=== PATIENT | male | born 1980 | race Caucasian/White ===

== ENCOUNTER 2017-09-01 21:44 | Emergency (ER) | payer OTHER, BC ==
[~2017-09-01] VITALS: Ht 182.8 cm; Wt 72.6 kg
[~2017-09-01 21:44] MED LIST: AUGMENTIN 875875 MG PO; CLEOCIN HCL150 MG PO; CLINDAMYCIN HC300 MG PO; HYDROCODONE BIT1 T11 PO; KEFLEX500 MG PO; MOTRIN800 MG PO; PENICILLIN250 MG PO; TOBREX OPHTH S2.5 ML OPH; ULTRAM50 MG PO; VICODIN 5/500 505 MG PO
[2017-09-01] MEDS ORDERED: ROBAXIN500 M1 PO (23:23)
== END 2017-09-01 23:43 | disposition home or self-care (01) ==
LOC: ED 21:44
DX: R51 Headache (principal); M54.2 Cervicalgia; M25.511 Pain in right shoulder; M25.512 Pain in left shoulder; F17.200 Nicotine dependence, unspecified, uncomplicated; Z79.899 Other long term (current) drug therapy; V49.88XA Car occupant (driver) (passenger) injured in other specified transport accidents, initial encounter; Y93.89 Activity, other specified; Y92.413 State road as the place of occurrence of the external cause; Y99.9 Unspecified external cause status

== ENCOUNTER 2019-04-06 17:41 | Emergency (ER) | payer BC ==
[~2019-04-06] VITALS: Ht 182.8 cm; Wt 74.8 kg
[~2019-04-06 17:41] MED LIST changes: +ROBAXIN500 M1 PO
== END 2019-04-06 19:16 | disposition home or self-care (01) ==
LOC: ED 17:41
DX: G43.909 Migraine, unspecified, not intractable, without status migrainosus (principal); F17.200 Nicotine dependence, unspecified, uncomplicated; Z79.2 Long term (current) use of antibiotics; Z79.899 Other long term (current) drug therapy

== ENCOUNTER 2020-07-26 15:52 | Emergency (ER) | payer OTHER | END 2020-07-26 17:00 | disposition home or self-care (01) | LOC: ED 15:52 | DX: R22.0 Localized swelling, mass and lump, head (principal); Z53.21 Procedure and treatment not carried out due to patient leaving prior to being seen by health care provider ==

== ENCOUNTER 2020-10-28 20:54 | Emergency (ER) | payer OTHER ==
[~2020-10-28] VITALS: Ht 182.8 cm; Wt 72.6 kg
[2020-10-28 21:47] LABS: BASO % 0.5 % (0.0-1.0); EOS # 0.1 10*3/uL (0.0-0.4); EOS % 1.5 % (1.0-4.0); HEMATOCRIT 44.4 % (42.0-52.0); LYMPH # 1.4 10*3/uL (1.3-4.4); LYMPH % 16.7 % (27.0-41.0); MEAN CELL VOLUME 98.4 fl (80.0-94.0); MEAN CORPUSCULAR HGB 31.5 pg (27.0-31.0); MEAN PLATELET VOLUME 9.2 fl (9.6-12.3); MONO # 0.9 10*3/uL (0.1-1.0); MONO % 10.5 % (3.0-9.0); NEUT % 70.4 % (47.0-73.0); PLATELET COUNT AUTOMATED 394 10*3/uL (130-400); RED BLOOD COUNT 4.51 10*6/uL (4.50-5.90); RED CELL DISTRI WIDTH 15.5 % (0-14.5); WHITE BLOOD COUNT 8.6 10*3/uL (4.8-10.8)
[2020-10-28 22:03] LABS: ALBUMIN 3.9 gm/dl (3.1-4.5); ALKALINE PHOSPHATASE 84 U/L (45-117); BUN 14 mg/dl (7-24); CHLORIDE 106 mmol/L (98-107); CREATININE 1.15 mg/dL (0.70-1.30); POTASSIUM 3.5 mmol/L (3.5-5.1); SGOT/AST 9 IU/L (3-35); SGPT/ALT 8 U/L (12-78); SODIUM 140 mmol/L (136-145); TOTAL PROTEIN 8.2 gm/dL (6.4-8.2)
[2020-10-28 22:04] LABS: TROPONIN I < 0.015 ng/ml (<0.045)
== END 2020-10-29 05:51 | disposition home or self-care (01) ==
LOC: ED 20:54
PROVIDERS: Emergency Medicine
DX: R42 Dizziness and giddiness (principal); T38.0X5A Adverse effect of glucocorticoids and synthetic analogues, initial encounter; Z88.8 Allergy status to other drugs, medicaments and biological substances; Y92.89 Other specified places as the place of occurrence of the external cause

== ENCOUNTER 2020-11-01 20:52 | Emergency (ER) | payer OTHER ==
[~2020-11-01] VITALS: Ht 182.8 cm; Wt 72.6 kg
[2020-11-01] MEDS ORDERED: ZOFRAN4 MG PO (21:40)
== END 2020-11-01 22:10 | disposition home or self-care (01) ==
LOC: ED 20:52
DX: R11.0 Nausea (principal); F17.200 Nicotine dependence, unspecified, uncomplicated; Z88.8 Allergy status to other drugs, medicaments and biological substances; Z79.899 Other long term (current) drug therapy

== ENCOUNTER 2021-03-30 01:47 | Emergency (ER) | payer OTHER ==
[~2021-03-30] VITALS: Ht 182.8 cm; Wt 72.6 kg
[~2021-03-30 01:47] MED LIST changes: +ZOFRAN4 MG PO
== END 2021-03-30 03:32 | disposition home or self-care (01) ==
LOC: ED 01:47
DX: R05 Cough (principal); Z20.822 Contact with and (suspected) exposure to COVID-19; Z88.8 Allergy status to other drugs, medicaments and biological substances

== ENCOUNTER 2021-05-19 23:22 | Emergency (ER) | payer OTHER ==
[~2021-05-19] VITALS: Ht 182.8 cm; Wt 72.6 kg
== END 2021-05-20 01:40 | disposition home or self-care (01) ==
LOC: ED 23:22
DX: S09.90XA Unspecified injury of head, initial encounter (principal); Z88.8 Allergy status to other drugs, medicaments and biological substances; V49.50XA Passenger injured in collision with unspecified motor vehicles in traffic accident, initial encounter; Y93.89 Activity, other specified; Y92.89 Other specified places as the place of occurrence of the external cause; Y99.8 Other external cause status

== ENCOUNTER 2021-07-06 19:58 | Emergency (ER) | payer OTHER ==
[~2021-07-06] VITALS: Ht 182.8 cm; Wt 72.6 kg
== END 2021-07-06 23:37 | disposition left against medical advice (07) ==
LOC: ED 19:58
DX: R05.9 Cough, unspecified (principal); Z20.822 Contact with and (suspected) exposure to COVID-19

== ENCOUNTER 2021-11-07 | Emergency (ER) | payer OTHER ==
[~2021-11-07] VITALS: Ht 180.3 cm; Wt 81.6 kg
[2021-11-07] MEDS ORDERED: CEPHALEXIN500 M1 PO (02:40)
== END 2021-11-07 03:20 | disposition left against medical advice (07) ==
LOC: ED
DX: S01.01XA Laceration without foreign body of scalp, initial encounter (principal); Z88.8 Allergy status to other drugs, medicaments and biological substances; W22.8XXA Striking against or struck by other objects, initial encounter; Y93.89 Activity, other specified; Y92.89 Other specified places as the place of occurrence of the external cause; Y99.8 Other external cause status

== ENCOUNTER 2021-12-01 16:07 | Emergency (ER) | payer OTHER ==
[~2021-12-01] VITALS: Ht 180.3 cm; Wt 72.6 kg
[~2021-12-01 16:07] MED LIST changes: +CEPHALEXIN500 M1 PO
[2021-12-01 16:45] LABS: BASO % 0.5 % (0.0-1.0); EOS # 0.4 10*3/uL (0.0-0.4); EOS % 4.3 % (1.0-4.0); HEMATOCRIT 41.7 % (42.0-52.0); LYMPH # 1.5 10*3/uL (1.3-4.4); MEAN CELL VOLUME 97.2 fl (80.0-94.0); MEAN CORPUSCULAR HGB 30.8 pg (27.0-31.0); MEAN CORPUSCULAR HGB CONC 31.7 g/dl (33.0-37.0); MEAN PLATELET VOLUME 8.7 fl (9.6-12.3); MONO # 0.6 10*3/uL (0.1-1.0); MONO % 7.3 % (3.0-9.0); NEUT % 70.7 % (47.0-73.0); PLATELET COUNT AUTOMATED 393 10*3/uL (130-400); RED BLOOD COUNT 4.29 10*6/uL (4.50-5.90); RED CELL DISTRI WIDTH 15.1 % (0-14.5); WHITE BLOOD COUNT 8.5 10*3/uL (4.8-10.8)
[2021-12-01 17:04] LABS: ALKALINE PHOSPHATASE 97 U/L (45-117); BUN 16 mg/dl (7-24); CHLORIDE 106 mmol/L (98-107); POTASSIUM 3.9 mmol/L (3.5-5.1); SGOT/AST 11 IU/L (3-35); SGPT/ALT 7 U/L (12-78); SODIUM 139 mmol/L (136-145); TOTAL PROTEIN 7.3 gm/dL (6.4-8.2)
== END 2021-12-01 18:59 | disposition left against medical advice (07) ==
LOC: ED 16:07
PROVIDERS: Emergency Medicine
DX: K04.7 Periapical abscess without sinus (principal); F17.200 Nicotine dependence, unspecified, uncomplicated

== ENCOUNTER 2024-01-28 17:51 | Emergency (ER) | payer MEDICAID ==
[~2024-01-28] VITALS: Ht 195.5 cm; Wt 72.6 kg
[2024-01-28] MEDS ORDERED: diphenhydrAMINE hydrochloride 50 MG/ML VIAL IM ONE (18:15)
== END 2024-01-28 20:13 | disposition home or self-care (01) ==
LOC: ED 17:51
DX: T63.441A Toxic effect of venom of bees, accidental (unintentional), initial encounter (principal); Z88.8 Allergy status to other drugs, medicaments and biological substances; Y92.89 Other specified places as the place of occurrence of the external cause

== ENCOUNTER 2024-02-22 23:26 | Emergency (ER) | payer MEDICAID ==
[~2024-02-22] VITALS: Ht 182.8 cm; Wt 72.6 kg
[2024-02-22] MEDS ORDERED: SODIUM CHLORIDE 0.9% 1,000 ML IV ONE (23:40)
[2024-02-22] MEDS ORDERED: Ondansetron Hydrochloride 4 MG/2 ML VIAL IV ONE (23:45)
[2024-02-22 23:54] LABS: BASO # 0.1 10*3/uL (0.0-0.1); EOS # 0.5 10*3/uL (0.0-0.4); EOS % 8.4 % (1.0-4.0); LYMPH # 1.4 10*3/uL (1.3-4.4); LYMPH % 22.6 % (27.0-41.0); MEAN CELL VOLUME 98.8 fl (80.0-94.0); MEAN CORPUSCULAR HGB 31.8 pg (27.0-31.0); MEAN CORPUSCULAR HGB CONC 32.2 g/dl (33.0-37.0); MONO # 0.4 10*3/uL (0.1-1.0); MONO % 6.9 % (3.0-9.0); NEUT # 3.6 10*3/uL (2.3-7.9); NEUT % 60.9 % (47.0-73.0); PLATELET COUNT AUTOMATED 278 10*3/uL (130-400); RED BLOOD COUNT 4.15 10*6/uL (4.50-5.90); RED CELL DISTRI WIDTH 15.5 % (0-14.5)
[2024-02-23 00:38] LABS: BUN 17 mg/dl (9-23); CHLORIDE 106 mmol/L (98-107); POTASSIUM 3.3 mmol/L (3.4-5.1)
[2024-02-23] MEDS ORDERED: POTASSIUM CHLORIDE 20 MEQ TAB PO ONE (00:40)
== END 2024-02-23 01:03 | disposition home or self-care (01) ==
LOC: ED 23:26
PROVIDERS: Internal Medicine
DX: A05.9 Bacterial foodborne intoxication, unspecified (principal); Z20.822 Contact with and (suspected) exposure to COVID-19; Z88.8 Allergy status to other drugs, medicaments and biological substances; Z87.891 Personal history of nicotine dependence

== ENCOUNTER 2024-04-08 01:50 | Emergency (ER) | payer BC, MEDICAID ==
[~2024-04-08] VITALS: Ht 182.8 cm; Wt 72.6 kg
== END 2024-04-08 04:06 | disposition home or self-care (01) ==
LOC: ED 01:50
DX: B34.9 Viral infection, unspecified (principal); Z20.822 Contact with and (suspected) exposure to COVID-19; R11.10 Vomiting, unspecified; Z88.8 Allergy status to other drugs, medicaments and biological substances

== ENCOUNTER 2024-05-11 19:45 | Emergency (ER) | payer BC, MEDICAID ==
[~2024-05-11] VITALS: Ht 182.8 cm; Wt 72.6 kg
== END 2024-05-11 22:16 | disposition home or self-care (01) ==
LOC: ED 19:45
DX: S09.8XXA Other specified injuries of head, initial encounter (principal); M79.674 Pain in right toe(s); Z88.8 Allergy status to other drugs, medicaments and biological substances; X58.XXXA Exposure to other specified factors, initial encounter; Y93.89 Activity, other specified; Y92.481 Parking lot as the place of occurrence of the external cause; Y99.8 Other external cause status

== ENCOUNTER 2024-06-25 17:55 | Emergency (ER) | payer BC, MEDICAID ==
[~2024-06-25] VITALS: Ht 182.9 cm; Wt 72.6 kg
[2024-06-25] MEDS ORDERED: HYDROXYZINE HCL25 MG PO (18:20)
[2024-06-25] MEDS ORDERED: hydrOXYzine hydrochloride 50 MG/ML VIAL IM ONE (18:20)
== END 2024-06-25 18:44 | disposition home or self-care (01) ==
LOC: ED 17:55
DX: L29.9 Pruritus, unspecified (principal); T45.0X5A Adverse effect of antiallergic and antiemetic drugs, initial encounter; Z88.8 Allergy status to other drugs, medicaments and biological substances; Y92.89 Other specified places as the place of occurrence of the external cause

== ENCOUNTER 2024-06-27 18:12 | Emergency (ER) | payer BC, MEDICAID ==
[~2024-06-27] VITALS: Ht 182.8 cm; Wt 72.6 kg
[~2024-06-27 18:12] MED LIST changes: +HYDROXYZINE HCL25 MG PO
[2024-06-27] MEDS ORDERED: VISTARIL25 MG PO (18:38)
[2024-06-27] MEDS ORDERED: hydrOXYzine pamoate 25 MG CAP PO ONE (18:40)
== END 2024-06-27 18:43 | disposition home or self-care (01) ==
LOC: ED 18:12
DX: F41.9 Anxiety disorder, unspecified (principal); Z88.8 Allergy status to other drugs, medicaments and biological substances

== ENCOUNTER 2024-06-29 19:03 | Emergency (ER) | payer BC, MEDICAID ==
[~2024-06-29] VITALS: Ht 185.4 cm; Wt 72.6 kg
[~2024-06-29 19:03] MED LIST changes: +VISTARIL25 MG PO
[2024-06-29] MEDS ORDERED: hydrOXYzine pamoate 25 MG CAP PO ONE (22:15)
[2024-06-29] MEDS ORDERED: VISTARIL25 MG PO (22:36)
== END 2024-06-29 23:01 | disposition home or self-care (01) ==
LOC: ED 19:03
DX: F41.9 Anxiety disorder, unspecified (principal); Z88.8 Allergy status to other drugs, medicaments and biological substances

== ENCOUNTER 2024-07-05 19:15 | Emergency (ER) | payer BC, MEDICAID ==
[~2024-07-05] VITALS: Ht 182.8 cm; Wt 72.6 kg
[2024-07-05] MEDS ORDERED: CYCLOBENZAPRINE10 MG PO (20:12)
== END 2024-07-05 20:19 | disposition home or self-care (01) ==
LOC: ED 19:15
DX: S39.012A Strain of muscle, fascia and tendon of lower back, initial encounter (principal); F41.9 Anxiety disorder, unspecified; Z88.8 Allergy status to other drugs, medicaments and biological substances; X50.1XXA Overexertion from prolonged static or awkward postures, initial encounter; Y93.89 Activity, other specified; Y92.89 Other specified places as the place of occurrence of the external cause; Y99.0 Civilian activity done for income or pay

== ENCOUNTER 2024-07-07 19:31 | Emergency (ER) | payer BC, MEDICAID ==
[~2024-07-07] VITALS: Ht 182.8 cm; Wt 72.6 kg
[~2024-07-07 19:31] MED LIST changes: +CYCLOBENZAPRINE10 MG PO
== END 2024-07-07 19:54 | disposition home or self-care (01) ==
LOC: ED 19:31
DX: G25.1 Drug-induced tremor (principal); T48.1X5A Adverse effect of skeletal muscle relaxants [neuromuscular blocking agents], initial encounter; F41.9 Anxiety disorder, unspecified; Z88.8 Allergy status to other drugs, medicaments and biological substances; Z79.899 Other long term (current) drug therapy; Y92.89 Other specified places as the place of occurrence of the external cause

== ENCOUNTER 2024-10-06 23:05 | Emergency (ER) | payer MEDICAID ==
[~2024-10-06] VITALS: Ht 182.8 cm; Wt 77.1 kg
== END 2024-10-07 01:39 | disposition left against medical advice (07) ==
LOC: ED 23:05
DX: S00.03XA Contusion of scalp, initial encounter (principal); Z79.899 Other long term (current) drug therapy; Z88.8 Allergy status to other drugs, medicaments and biological substances; W22.8XXA Striking against or struck by other objects, initial encounter; Y93.89 Activity, other specified; Y92.89 Other specified places as the place of occurrence of the external cause; Y99.0 Civilian activity done for income or pay

== ENCOUNTER 2024-10-12 19:06 | Emergency (ER) | payer MEDICAID ==
[~2024-10-12] VITALS: Ht 182.8 cm; Wt 72.6 kg
== END 2024-10-12 20:23 | disposition home or self-care (01) ==
LOC: ED 19:06
DX: Z02.79 Encounter for issue of other medical certificate (principal); Z88.8 Allergy status to other drugs, medicaments and biological substances

== ENCOUNTER 2025-02-06 19:47 | Emergency (ER) | payer MEDICAID ==
[~2025-02-06] VITALS: Ht 182.8 cm; Wt 72.6 kg
[2025-02-06] MEDS ORDERED: diphenhydrAMINE hydrochloride 50 MG/ML VIAL IV ONE (20:15)
[2025-02-06] MEDS ORDERED: SODIUM CHLORIDE 0.9% 1,000 ML IV ONE (20:15)
== END 2025-02-06 21:35 | disposition left against medical advice (07) ==
LOC: ED 19:47
DX: G43.909 Migraine, unspecified, not intractable, without status migrainosus (principal); Z88.8 Allergy status to other drugs, medicaments and biological substances